=== PATIENT | female | born 1950 | race Caucasian/White ===

== ENCOUNTER 2016-11-29 11:00 | Day surgery (SDC) | payer MEDICARE, OTHER ==
[~2016-11-29] VITALS: Ht 175.3 cm; Wt 69.8 kg
[~2016-11-29 11:00] MED LIST: 0.9% Sodium Chloride 1,000 ML IV PRN; CHOL400T3 PO; DIPH-575 PO; LACT1CAP37 PO; PRAV10TA2 PO; Sodium Chloride LOK Flush 10 mL Syringe IV PRN; fentaNYL-PF 50 mCg/mL 2 mL Inj IVPUSH PRN
[2016-11-29 11:20] VITALS: BP 115/70; PULSE 64; RESP 12; O2SAT 97
[2016-11-29] MEDS ORDERED: FLUT9.9S NS (11:23)
[2016-11-29] MEDS ORDERED: RANI150C4 PO (11:23)
[2016-11-29 13:23] VITALS: BP 90/60; PULSE 70; RESP 16; O2SAT 100
[2016-11-29 13:33] VITALS: BP 84/59; PULSE 67; RESP 16; O2SAT 98
[2016-11-29 13:43] VITALS: BP 106/57; PULSE 77; RESP 16; O2SAT 99
--- NOTE | 2016-11-29 14:02 | ENDO ---
[address] [address] ENDOSCOPY PROCEDURE PATIENT: POP COLMENARES V : 1950 MR#: [id number] ADMIT: 11/29/2016 JOB ID: [id number] DATE: 11/29/2016 PRIMARY PROVIDER: Meeta Joe M.D. PROCEDURE: Colonoscopy. INDICATIONS: A 66-year-old female with a personal history of colon polyps. EQUIPMENT: PCF H 180 AL. SEDATION: 1. 4 mg Versed. 2. 100 mcg fentanyl. COMPLICATIONS: None identified. BOWEL PREPARATION: Fair, adequate examination. PROCEDURAL INFORMATION: After the risks and benefits were explained, written and verbal informed consent was obtained. The patient was brought into the endoscopy suite and placed into the left lateral decubitus position. Sedation was achieved using the above-stated medications with the addition of oxygen via nasal cannula. A digital rectal examination was accomplished. No significant pathology appreciated. Mild internal hemorrhoids. The scope was introduced into the rectum and advanced to the cecum as identified by the appendiceal orifice and ileocecal valve. The scope was slowly withdrawn to carefully examine the mucosa for any defects or lesions. Multiple direct views were made through the dentate line for exclusion of pathology. The colon was decompressed. The scope removed from the patient who tolerated the procedure well. FINDINGS: No significant polyps, mass lesions, or inflammatory features identified throughout. ENDOSCOPIC DIAGNOSIS: Gastroduodenopathy. 1. Hemorrhoids. 2. Otherwise visually unremarkable colonoscopy. RECOMMENDATIONS: Repeat colonoscopy five years considering personal history of colon polyps.
== END 2016-11-29 23:59 | disposition home or self-care (01) ==
LOC: END 11:00
PROVIDERS: ATTEND Internal Medicine Gastroenterology
DX: Z12.11 Encounter for screening for malignant neoplasm of colon (principal); K64.8 Other hemorrhoids; Z86.010 Personal history of colon polyps; K21.9 Gastro-esophageal reflux disease without esophagitis
CPT/HCPCS: G0105; G0500; J7030